=== PATIENT | female | born 1960 | race Caucasian/White ===

== ENCOUNTER 2017-06-22 06:55 | Day surgery (SDC) | payer OTHER ==
[~2017-06-22] VITALS: Ht 167.6 cm; Wt 80.7 kg
[~2017-06-22 06:55] MED LIST: LISINOPRIL2.5 MG PO
--- NOTE | 2017-06-22 10:23 | NUR ---
06/22/17 1023 Jessica Valero [id number] - PT ARRIVED TO PACU. MAINTAINING OWN AIRWAY. PT DENIES PAIN AND NAUSEA.
[2017-06-22] MEDS ORDERED: IBUPROFEN600 MG PO (10:33)
[2017-06-22] MEDS ORDERED: OXYCODON-ACETA1 EAC2 PO (10:37)
[2017-06-22] MEDS ORDERED: MAPAP325 MG PO (10:37)
--- NOTE | 2017-06-22 14:05 | NUR ---
PT ALERT, ORIENTED AND SUPPORTED BY HER MICHAEL. SHE SEEMED PREPARED, HAD FEW QUESTIONS. PT REQUESTED PRAYER, WILL FOLLOW NEEDED
--- NOTE | 2017-06-23 10:03 | OR ---
[facility] [address], [place] [address] Signed DATE OF OPERATION: 06/22/2017 SURGEON: Michael Maria MD PREOPERATIVE DIAGNOSIS: Left posterior shoulder soft tissue mass. POSTOPERATIVE DIAGNOSIS: Left posterior shoulder subfascial soft tissue mass 4 cm consistent with lipoma. PROCEDURE: Excision of left posterior shoulder subfascial soft tissue mass. ANESTHESIA: Local with monitored anesthesia care, Elena Fairchild CRNA and local 20 mL of 0.25% Marcaine mixed with 1% lidocaine. 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 Womack. She has noticed an increasingly painful soft tissue mass in the left posterior shoulder above the transverse process of the scapula. It is deeper than average and most likely consistent with lipoma. She is here for excision of the lesion. She understands the risks of bleeding, infection, recurrence, and need for other additional treatment and wished to proceed. FINDINGS: The lesion was most consistent with a relatively well and capsulated lipoma. It was down to the muscular fibers of the latissimus dorsi. It was completely excised. It was about 4 cm in size. DESCRIPTION OF PROCEDURE: The patient was brought to the operating room, placed in the lateral position left side up and the shoulder area and posterior thorax prepared with a chlorhexidine solution and draped sterilely. Preoperative antibiotic Ancef was given. Sequential compression device stockings were used and heparin subcutaneously administered. She was given intravenous sedation with careful monitoring. A 1% lidocaine mixed with 0.25% Marcaine in equal proportions was injected along the line of skin tension vertically. An incision was made through the thick dermis and dissection carried through a small amount of subcutaneous tissue encountering the capsulated probable lipoma. This was dissected free from the surrounding tissue with electrocautery, excising that fully down to the Electronically Signed By: MICHAEL MARIA MD 06/23/17 1003 PATIENT NAME: KELSI YUEN OPERATIVE REPORT DATE OF : 60 PHYSICIAN: MICHAEL MARIA MD REPORT #: [id number] REPORT IS CONFIDENTIAL AND NOT TO BE RELEASED WITHOUT AUTHORIZATION [facility] [address] [place] [id number] Signed fascia of the latissimus dorsi muscle. Complete excision was then undertaken. Photographs were taken. Irrigation was undertaken and additional local anesthesia injected into the fascia of the muscle. The wound was closed in layers with interrupted 2-0 Vicryl and running subcuticular 3-0 Vicryl for the skin. Steri-Strips were applied as was a Mepilex silver sponge dressing and an OpSite. The patient was ultimately allowed to return to supine position, allowed to emerge from sedation and taken to recovery room in good condition. BLOOD LOSS: Minimal. COMPLICATIONS: None. COUNTS: Sponge, needle, and instruments counts reported as correct x3. MD DES Reyes/LIZY /[id number] cc: Jayce Womack MD Electronically Signed By: MICHAEL MARIA MD 06/23/17 1003 PATIENT NAME: SG YUENSA OPERATIVE REPORT DATE OF : 60 PHYSICIAN: MICHAEL MARIA MD REPORT #: [id number] REPORT IS CONFIDENTIAL AND NOT TO BE RELEASED WITHOUT AUTHORIZATION
== END 2017-06-22 11:20 | disposition home or self-care (01) ==
LOC: DS 06:55
PROVIDERS: Surgery
PROC: 0JBF0ZZ Excision of Left Upper Arm Subcutaneous Tissue and Fascia, Open Approach (ICD-10-PCS; principal; 2017-06-22 09:00)
DX: D17.22 Benign lipomatous neoplasm of skin and subcutaneous tissue of left arm (principal); I10 Essential (primary) hypertension; Z88.0 Allergy status to penicillin; Z90.89 Acquired absence of other organs; Z98.890 Other specified postprocedural states; Z79.899 Other long term (current) drug therapy
CPT/HCPCS: 00400; J0690; J1100; J1885; J2250; J2405; J2704; J3010; J7120